=== PATIENT | female | born 1950 | race Caucasian/White ===

== ENCOUNTER → 2016-06-14 | Day surgery (SDC) | payer OTHER ==
[~2016-06-14] MED LIST: ACETAMINOPHEN 1000 MG/100 ML VIAL IV ONE; BALANCED SALT SOLN OPHT IRRIG 15 ML BTL ONE; ERYTHROMYCIN 0.5% OPTH OINT 1 GM TUBO ONE; LACTATED RINGER'S 1000 ML INJ 1,000 ML ONE; LIDOCAINE 2%/EPINEPHrine PF 1:200,000 20ML SDV ONE; MIDAZOLAM HCL 2 MG/2 ML VIAL ONE; NEOMYCIN/POLYMYXIN/HYDROCORT OTIC SUSP 10 ML BTL ONE; ONDANSETRON HCL 4 MG/2 ML VIAL IV PUSH ONE; PROPOFOL 200 MG/20 ML AMP IV ONE; ceFAZolin INJ 1,000 MG VIAL ONE
--- NOTE | 2016-06-14 09:05 | TN ---
cc: CARLOS MANUEL MONTEIRO M.D. DATE OF SURGERY 06/11/2016 PREOPERATIVE DIAGNOSIS Lower eyelid and canthal laxity PROCEDURE Lower eyelid blepharoplasty. SURGEON Carlos Manuel Monteiro MD ANESTHESIA LMA general plus a total of 10 cc of 1% lidocaine with epinephrine. ESTIMATED BLOOD LOSS Minimal COMPLICATIONS None PROCEDURE She was properly consented, marked and anesthetized. The skin was sterilized with Microcyn, sterile drapes were applied and the cornea was properly covered with Lacri-Lube. Utilizing a 15 blade, a subciliary incision was carried out and after 4 mm of dissecting the skin only by protecting the innervation of the auricularis oculi muscle, the myocutaneous flap was elevated all the way and below the orbital rim. Release of the arcus marginalis was carried out redistributing the fat, however, some small amounts were removed. I proceeded and assuring meticulous hemostasis and through a separate upper eye lateral eyelid incision, a 5-0 silk was utilized to perform a lower lid lateral canthopexy attached to the superolateral orbital periosteum. The wounds were closed in multiple layers including 6-0 Monocryl suture and a running 6-0 Prolene to the skin. Good viability of tissue was noted at the end of the case. Steri-Strips were applied to the skin to minimize the swelling. Good viability of tissue was noted at the end of the case. The patient tolerated the procedure well. MD MARIA ISABEL Morgan/KARY /8:33 AM /8:48 AM
== END | disposition home or self-care (01) ==
LOC: ESDC 06:18
PROVIDERS: ATTEND Plastic Surgery
DX: Z41.1 Encounter for cosmetic surgery (principal)
CPT/HCPCS: 00103; 15820; J0131; J0690; J2250; J2405; J3010; J7120